=== PATIENT | female | born 1955 | race African-American/Black ===

== ENCOUNTER 2020-09-28 15:41 | Outpatient (CLI) | payer MEDICARE, OTHER | END 2020-09-28 15:42 | disposition home or self-care (01) | LOC: CSHMAMMO 15:41 | PROVIDERS: ATTEND Internal Medicine | DX: Z12.31 Encounter for screening mammogram for malignant neoplasm of breast (principal) | CPT/HCPCS: 77063; 77067 ==

== ENCOUNTER 2023-03-07 14:56 | Outpatient (CLI) | payer MEDICARE, OTHER | END 2023-03-07 14:57 | disposition home or self-care (01) | LOC: CSHMAMMO 14:56 | PROVIDERS: ATTEND Registered Nurse Hospice | DX: Z12.31 Encounter for screening mammogram for malignant neoplasm of breast (principal); Z80.3 Family history of malignant neoplasm of breast; Z91.89 Other specified personal risk factors, not elsewhere classified; N64.89 Other specified disorders of breast | CPT/HCPCS: 77063; 77067 ==

== ENCOUNTER 2023-03-09 13:53 | Outpatient (CLI) | payer MEDICARE, OTHER | END 2023-03-09 13:54 | disposition home or self-care (01) | LOC: CSHMAMMO 13:53 | PROVIDERS: ATTEND Registered Nurse Hospice | DX: N63.22 Unspecified lump in the left breast, upper inner quadrant (principal) | CPT/HCPCS: 76642; 77065; G0279 ==

== ENCOUNTER → 2023-03-13 | Day surgery (SDC) | payer MEDICARE, OTHER | LOC: CSHULT 12:17 | PROVIDERS: ATTEND Registered Nurse Hospice | PROC: 0HB5XZX Excision of Chest Skin, External Approach, Diagnostic (ICD-10-PCS; principal; 2023-03-13) | DX: N63.21 Unspecified lump in the left breast, upper outer quadrant (principal) | CPT/HCPCS: 19083; 88305; 88341; 88342; 88360; 88361; 88374 ==

== ENCOUNTER 2023-07-02 08:30 | Outpatient (CLI) | payer MEDICARE, OTHER | END 2023-07-02 08:31 | disposition home or self-care (01) | LOC: CSHMAMMO 08:30 | PROVIDERS: ATTEND Pediatrics Pediatric Hematology-Oncology | DX: Z13.820 Encounter for screening for osteoporosis (principal); C50.412 Malignant neoplasm of upper-outer quadrant of left female breast; M85.88 Other specified disorders of bone density and structure, other site | CPT/HCPCS: 77080 ==

== ENCOUNTER 2025-03-19 09:52 | Outpatient (CLI) | payer MEDICARE, OTHER | END 2025-03-19 09:53 | disposition home or self-care (01) | LOC: CSHMAMMO 09:52 | PROVIDERS: ATTEND Specialist | DX: C50.912 Malignant neoplasm of unspecified site of left female breast (principal) | CPT/HCPCS: 77066; G0279 ==